=== PATIENT | female | born 1965 | race Caucasian/White ===

== ENCOUNTER → 2020-08-09 | Day surgery (SDC) | payer MEDICAID ==
[~2020-08-09] MED LIST: AMLO10TA80 PO; ASPI-1497 PO; FOLI-43 PO; HYDR200T35 PO; INSU3INS6 SQ; LIDOCAINE HCL 1% 20ML VIAL (Pyxis) INJ ONE; METF-416 PO; SODIUM BICARBONATE 4% (2.4MEQ) 5ML VIAL IV ONE
== END | disposition home or self-care (01) ==
LOC: RADANGIO 09:56
PROVIDERS: ATTEND Podiatrist Foot & Ankle Surgery
DX: M86.8X7 Other osteomyelitis, ankle and foot (principal); Z79.2 Long term (current) use of antibiotics; Z79.899 Other long term (current) drug therapy; Z79.82 Long term (current) use of aspirin; Z88.0 Allergy status to penicillin
CPT/HCPCS: 36573; C1725; J3490